=== PATIENT | female | born 1930 | race Caucasian/White ===

== ENCOUNTER 2018-02-27 10:45 | Inpatient (IN) | payer OTHER ==
[~2018-02-27] VITALS: Ht 157.5 cm; Wt 72.6 kg
[2018-02-27 10:53] VITALS: Ht 157.5 cm; Wt 72.6 kg
[2018-02-27 11:10] LABS: BASOPHIL % 0.3 % (0-2); RED CELL DISTRIBUTION WIDTH 19.4 % (11.5-14.5)
[2018-02-27 11:30] LABS: ALKALINE PHOSPHATASE 127 U/L (46-116); ALT/SGPT 68 U/L (14-59); AST/SGOT 43 U/L (15-37); BILIRUBIN TOTAL 0.73 mg/dL (0.20-1.00); CALCIUM 8.1 mg/dL (8.5-10.1); CARBON DIOXIDE 35.8 mmol/L (21-32); CHLORIDE SERUM 99 mmol/L (98-107); CHOLESTEROL 139 mg/dL (<200); CHOLESTEROL/HDL RATIO 3.4; CREATININE SERUM 0.8 mg/dL (0.6-1.0); GLUCOSE SERUM 152 mg/dL (74-106); HDL CHOLESTEROL 41 mg/dL (40-60); LIPASE 362 IU/L (73-393); POTASSIUM SERUM 3.6 mmol/L (3.5-5.1); SODIUM SERUM 138 mmol/L (136-145); TRIGLYCERIDES 103 mg/dL (<150)
[2018-02-27 11:35] LABS: ALBUMIN 2.5 g/dL (3.4-5.0); TOTAL PROTEIN, SERUM 4.9 g/dL (6.4-8.2)
[2018-02-27 11:44] LABS: FREE T4 1.07 ng/dL (0.76-1.46); FREE THYROXINE INDEX 2.6 ug/dL (1.4-4.5); T4(THYROXINE) 6.5 ug/dL (4.7-13.3)
[2018-02-27 11:45] LABS: PLATELET COUNT 49 x10^3mcL (130-400)
[2018-02-27 11:46] LABS: T3 TOTAL 0.59 ng/mL
[2018-02-27] MEDS ORDERED: PANTOPRAZOLE SO40 M1 PO (12:24)
[2018-02-27] MEDS ORDERED: DILTIAZEM HCL120 M2 (12:25)
[2018-02-27] MEDS ORDERED: CARAFATE1 GM PO (12:25)
[2018-02-27] MEDS ORDERED: PREDNISONE5 M1 PO (12:26)
[2018-02-27] MEDS ORDERED: ALENDRONATE SOD70 M2 PO (12:27)
[2018-02-27] MEDS ORDERED: KLOR-CON M2020 MEQ PO (12:27)
[2018-02-27] MEDS ORDERED: ARICEPT5 MG PO (12:28)
[2018-02-27] MEDS ORDERED: FUROSEMIDE40 MG PO (12:28)
[2018-02-27] MEDS ORDERED: METOPROLOL SUCC50 M2 PO (12:28)
[2018-02-27] MEDS ORDERED: CORAL CALCIUM1 POW (12:28)
[2018-02-27] MEDS ORDERED: GLIMEPIRIDE4 M1 PO (12:29)
[2018-02-27 12:50] LABS: microscopic required? YES; urine erythrocyte TRACE (NEGATIVE)
[2018-02-27 13:24] VITALS: BP 90/60
[2018-02-27 13:24] LABS: MAGNESIUM 1.5 mg/dL (1.8-2.4); PHOSPHOROUS 2.5 mg/dL (2.5-4.9)
[2018-02-27 16:03] VITALS: BP 126/88
[2018-02-27 18:20] VITALS: BP 126/88
[2018-02-27 21:00] VITALS: BP 99/64
[2018-02-28 06:12] VITALS: BP 117/93
[2018-02-28 06:29] LABS: CALCIUM 8.4 mg/dL (8.5-10.1); CARBON DIOXIDE 35.7 mmol/L (21-32); CHLORIDE SERUM 100 mmol/L (98-107); CREATININE SERUM 0.7 mg/dL (0.6-1.0); GLUCOSE SERUM 80 mg/dL (74-106); MAGNESIUM 1.6 mg/dL (1.8-2.4); PHOSPHOROUS 2.6 mg/dL (2.5-4.9); POTASSIUM SERUM 3.3 mmol/L (3.5-5.1); SODIUM SERUM 137 mmol/L (136-145)
[2018-02-28 06:51] LABS: BASOPHIL % 0 % (0-2)
[2018-02-28 07:36] LABS: PLATELET COUNT 48 x10^3mcL (130-400)
[2018-02-28 09:00] VITALS: BP 110/75
[2018-02-28 13:15] VITALS: BP 98/63
[2018-02-28 17:46] VITALS: BP 111/69
[2018-02-28 20:40] VITALS: BP 107/65
[2018-03-01 05:23] VITALS: BP 102/67
[2018-03-01 07:25] LABS: CALCIUM 8.6 mg/dL (8.5-10.1); CARBON DIOXIDE 36.7 mmol/L (21-32); CHLORIDE SERUM 104 mmol/L (98-107); CREATININE SERUM 0.8 mg/dL (0.6-1.0); GLUCOSE SERUM 63 mg/dL (74-106); MAGNESIUM 2.3 mg/dL (1.8-2.4); POTASSIUM SERUM 4.1 mmol/L (3.5-5.1); SODIUM SERUM 140 mmol/L (136-145)
[2018-03-01 07:53] LABS: BASOPHIL % 0.3 % (0-2)
[2018-03-01 08:02] LABS: RED CELL DISTRIBUTION WIDTH 18.9 % (11.5-14.5)
[2018-03-01 08:03] LABS: PLATELET COUNT 46 x10^3mcL (130-400)
[2018-03-01 09:12] VITALS: BP 97/61
[2018-03-01 12:27] VITALS: BP 120/73
[2018-03-01 17:24] VITALS: BP 120/76
[2018-03-01 20:32] VITALS: BP 117/61
[2018-03-02 05:14] VITALS: BP 124/76
[2018-03-02 07:22] LABS: BASOPHIL % 0 % (0-2); PLATELET COUNT 73 x10^3mcL (130-400); RED CELL DISTRIBUTION WIDTH 18.4 % (11.5-14.5)
[2018-03-02 07:56] LABS: CALCIUM 9.2 mg/dL (8.5-10.1); CARBON DIOXIDE 32.1 mmol/L (21-32); CHLORIDE SERUM 102 mmol/L (98-107); CREATININE SERUM 0.7 mg/dL (0.6-1.0); GLUCOSE SERUM 128 mg/dL (74-106); POTASSIUM SERUM 4.7 mmol/L (3.5-5.1); SODIUM SERUM 139 mmol/L (136-145)
[2018-03-02 09:01] VITALS: BP 134/89
[2018-03-02 12:12] VITALS: BP 134/89
[2018-03-02 12:51] VITALS: BP 134/81
== END 2018-03-02 16:28 | disposition home health service (06) | DRG 177 ==
LOC: ED 10:45 → DU 12:22
PROVIDERS: Internal Medicine; Specialist
DX: J69.0 Pneumonitis due to inhalation of food and vomit (principal); J96.01 Acute respiratory failure with hypoxia; N17.0 Acute kidney failure with tubular necrosis; E43 Unspecified severe protein-calorie malnutrition; D69.3 Immune thrombocytopenic purpura; E87.3 Alkalosis; E86.0 Dehydration; I48.2 Chronic atrial fibrillation; I10 Essential (primary) hypertension; G30.9 Alzheimer's disease, unspecified; F02.80 Dementia in other diseases classified elsewhere, unspecified severity, without behavioral disturbance, psychotic disturbance, mood disturbance, and anxiety; M81.0 Age-related osteoporosis without current pathological fracture; Z68.27 Body mass index [BMI] 27.0-27.9, adult; Z95.828 Presence of other vascular implants and grafts; Z86.718 Personal history of other venous thrombosis and embolism; Z79.01 Long term (current) use of anticoagulants; Z79.52 Long term (current) use of systemic steroids
CPT/HCPCS: 36600; 82962; 83880; 84439; 94150; 97110-GP; 97530-GP; J2543; J2920; J3475; J7030; J7040; J7512; J7620; J7626; Q0092